=== PATIENT | male | born 1950 ===

== ENCOUNTER 2021-11-22 09:15 | Inpatient (IN) | payer OTHER ==
[~2021-11-22] VITALS: Ht 167.6 cm; Wt 118.4 kg
[~2021-11-22 09:15] MED LIST: DIOVAN160 M1; HUMALOG100 U/M1; VYTORIN 10-20 M1 TAB
[2021-11-23] MEDS ORDERED: LANTUS SOL100 UNIT/1 (11:20)
[2021-11-23] MEDS ORDERED: IRBESARTAN-HCT1 EAC1 PO (11:20)
[2021-11-23] MEDS ORDERED: GABAPENTIN300 M2 PO (11:21)
[2021-11-23] MEDS ORDERED: LIPITOR40 MG PO (11:21)
[2021-11-23] MEDS ORDERED: LEVO-T50 MCG PO (11:21)
[2021-11-23] MEDS ORDERED: HUMALOG100 UNIT/2 (11:21)
[2021-11-27] MEDS ORDERED: ANORO ELLIPTA1 EACH (09:34)
[2021-11-27] MEDS ORDERED: ESCITALOPRAM OX10 MG (09:34)
[2021-11-27] MEDS ORDERED: METFORMIN HCL1000 M3 (09:34)
[2021-11-29] MEDS ORDERED: INTEGRA PLUS C1 EACH PO (07:46)
[2021-11-29] MEDS ORDERED: OXYC1TAB9 PO (07:46)
[2021-11-29] MEDS ORDERED: XARELTO10 MG PO (07:46)
[2021-11-29] MEDS ORDERED: BACTRIM DS TAB1 EACH PO (07:46)
== END 2021-11-29 14:51 | DRG 470 ==
LOC: ADM 09:15 → EDSTATUS 11-23 08:15 → SURG 11-27 07:00 → O/R 11-27 07:35 → SURH 11-27 07:35 → SURG 11-27 08:15 → SURH 11-27 14:04
PROVIDERS: ADMIT Orthopaedic Surgery Sports Medicine; ATTEND Orthopaedic Surgery Sports Medicine
PROC: 0SRC0J9 Replacement of Right Knee Joint with Synthetic Substitute, Cemented, Open Approach (ICD-10-PCS; principal; 2021-11-27 07:00)
DX: M17.11 Unilateral primary osteoarthritis, right knee (principal); I10 Essential (primary) hypertension; E03.9 Hypothyroidism, unspecified; E11.40 Type 2 diabetes mellitus with diabetic neuropathy, unspecified; Z79.4 Long term (current) use of insulin; J44.9 Chronic obstructive pulmonary disease, unspecified; G47.33 Obstructive sleep apnea (adult) (pediatric); Z96.651 Presence of right artificial knee joint; Z20.822 Contact with and (suspected) exposure to COVID-19